=== PATIENT | male | born 1970 | race Caucasian/White ===

== ENCOUNTER 2018-06-29 08:01 | Day surgery (SDC) | payer OTHER ==
[2018-06-28 12:54] VITALS: BMI 26.2
[2018-06-29] MEDS ORDERED: BUPIVACAINE HCL/EPINEPHRINE/PF 30 ML VIAL IJ ONE (09:03)
[2018-06-29] MEDS ORDERED: EPINEPHrine 1:1,000 1 MG/1 ML - 30ML VIAL (INJECTION) ONE (09:04)
[2018-06-29] MEDS ORDERED: DEXAMETHASONE SOD PHOSPHATE/PF 10 MG/ML SDV ONE (10:19)
[2018-06-29] MEDS ORDERED: ROPIVACAINE HCL 0.5% 30ML VIAL ONE (10:20)
[2018-06-29] MEDS ORDERED: MIDAZOLAM HCL 2 MG/2 ML SINGLE DOSE VIAL ONE (10:33)
[2018-06-29] MEDS ORDERED: PROPOFOL 20 ML ONE ×4 (11:06→11:39)
[2018-06-29] MEDS ORDERED: SUCCINYLCHOLINE CHLORIDE 200 MG/10 ML VIAL ONE (11:07)
[2018-06-29] MEDS ORDERED: ceFAZolin SODIUM 1 GM VIAL ONE (11:17)
[2018-06-29] MEDS ORDERED: ONDANSETRON 4 MG/2 ML VIAL ONE (11:17)
[2018-06-29] MEDS ORDERED: DEXAMETHASONE SOD PHOSPHATE 4 MG/1 ML VIAL ONE (11:17)
--- NOTE | 2018-06-29 12:18 | SURG ---
Surgery Shearing Shed Hand Note Shearing Shed Hand: Irma Iraheta PA-C Date of Service: 06/29/18 Diagnosis: Right shoulder A/c joint arthritis Procedure: Right shoulder arthroscopy with distal clavicle excision I was present for the entirety of the operative procedure. For further detail, please refer to operative report. Visit type - Case Type Case Type: Scheduled - Emergency Emergency Visit: No - New patient This patient is new to me today: Yes Date on this admission: 06/29/18
--- NOTE | 2018-06-29 12:23 | OP ---
Operative Note - Note: Operative Date: 06/29/18 Pre-Operative Diagnosis: right a/c joint arthritis Operation: right shoulder arthroscopy with distal calvicle excision Post-Operative Diagnosis: Same as Pre-op Surgeon: Tristan Branham Crew Supervisor: Irma Iraheta Anesthesiologist/CRIMPER OPERATOR: Devora Cuevas Anesthesia: General, Local (block) Estimated Blood Loss (mls): 5 Fluid Volume Replaced (mls): 900 Operative Report Dictated: Yes
[2018-06-29] MEDS ORDERED: oxyCODONE HCL 10 MG SUSTAINED ACTING TABLET PO ONE (12:41)
[2018-06-29] MEDS ORDERED: oxyCODONE HCL 5 MG TABLET PO PRN (12:41)
--- NOTE | 2018-06-29 12:43 | DS ---
Physical Examination Vital Signs: Vital Signs Temperature 97.5 F L 06/29/18 08:17 Pulse Rate 69 06/29/18 08:17 Respiratory Rate 16 06/29/18 08:17 Blood Pressure 108/74 06/29/18 08:17 O2 Sat by Pulse Oximetry (%) 98 06/29/18 08:17 Discharge Summary Reason For Visit: AC JOINT ARTHROSIS RIGHT SHOULDER Condition: Good - Instructions Diet, Activity, Other Instructions: Post Operative Instructions: Shoulder Arthroscopy Dr Tristan Branham 1. Pain following a Shoulder Arthroscopy is variable and can be significant. Some patients will have more pain than others. You have been provided with a prescription for medication that contains a narcotic. You are not allowed to drive while on this medication. You should take Tylenol (Acetaminophen) when taking the pain medication ( it will NOT result in an overdose). Feel free to take medications such as Ibuprofen or Naprosyn in addition to the pain medicine if you do not have any problems with the NSAID class of medications. 2. Apply ice to the shoulder for 15 minutes every hour. You may continue this for as many days as necessary. 3. You may find sleeping on an incline (reclining chair) to be more comfortable for the first few days. 4. You may remove your sling when the arm is comfortable. 5. You may use the arm as tolerated. 6. You may remove the bandages in 48 hours. You may shower at that point. 7. Place band-aids on the incisions after your shower. 8. Please call the office to schedule a visit to have your sutures removed. 9. If for any reason you believe you may have an infection or are concerned, please feel free to call me. I can be reached through our office number 24 hours a day. 10. Please call our office with any questions; we will review the surgical findings during your post-operative visit. Disposition: HOME - Home Medications Comprehensive Discharge Medication List: Ambulatory Orders NK [No Known Home Medication] 06/28/18
[2018-06-29 12:48] VITALS: TEMP 97.4
[2018-06-29] MEDS ORDERED: ONDANSETRON 4 MG/2 ML VIAL IVPUSH PRN (13:22)
[2018-06-29] MEDS ORDERED: LACTATED RINGERS SOLUTION 1,000 ML IV SCH (13:30)
[2018-06-29 13:35] VITALS: BP 114/74; PULSE 76
--- NOTE | 2018-07-04 16:00 | PATH ---
Surgical Pathology Report Patient Name: VIOLET MONTAÑO [facility]. Rec. #: [id number] /Age/Gender: 1970 (Age: 47) / M Account: [id number] Location: [facility] AMBULATORY Taken: 06/29/2018 Received: 06/29/2018 Reported: 07/04/2018 Physicians: Tristan Branham M.D. Specimen(s) Received RIGHT SHOULDER SHAVINGS Clinical History AC joint arthrosis right shoulder Final Diagnosis SHOULDER, RIGHT, ARTHROSCOPIC SHAVINGS: FIBROSYNOVIAL TISSUE, FIBROCOLLAGENOUS TISSUE, SCANT BONE AND SKELETAL MUSCLE. Electronically Signed Irma Colin M.D. Gross Description Received in formalin labeled "right shoulder shavings," is a 2.5 x 1.6 x 0.3 cm aggregate of haas-yellow soft tissue fragments. The formalin is filtered and the specimen is entirely submitted in one cassette. /07/02/2018 saudi07/02/2018
== END 2018-06-29 13:35 | disposition home or self-care (01) ==
LOC: FASU 08:01
PROVIDERS: ATTEND Orthopaedic Surgery
PROC: 0PB94ZZ Excision of Right Clavicle, Percutaneous Endoscopic Approach (ICD-10-PCS; principal; 2018-06-29 11:32)
DX: M19.011 Primary osteoarthritis, right shoulder (principal)
CPT/HCPCS: 88304-TC

== ENCOUNTER 2018-07-13 07:31 | Day surgery (SDC) | payer OTHER ==
[2018-06-29 12:56] VITALS: BMI 26.2
[2018-07-13] MEDS ORDERED: MIDAZOLAM HCL 2 MG/2 ML SINGLE DOSE VIAL ONE (07:36)
[2018-07-13] MEDS ORDERED: DEXAMETHASONE SOD PHOSPHATE/PF 10 MG/ML SDV ONE (07:36)
[2018-07-13] MEDS ORDERED: ROPIVACAINE HCL 0.5% 30ML VIAL ONE (07:36)
[2018-07-13] MEDS ORDERED: SUCCINYLCHOLINE CHLORIDE 200 MG/10 ML VIAL ONE (07:37)
[2018-07-13] MEDS ORDERED: PROPOFOL 20 ML ONE ×5 (07:37→09:27)
[2018-07-13] MEDS ORDERED: ONDANSETRON 4 MG/2 ML VIAL ONE (07:38)
[2018-07-13] MEDS ORDERED: ceFAZolin SODIUM 1 GM VIAL ONE (07:38)
[2018-07-13] MEDS ORDERED: SODIUM CHLORIDE 0.9% P/F 10 ML VIAL IJ ONE (07:38)
[2018-07-13] MEDS ORDERED: BUPIVACAINE HCL/EPINEPHRINE/PF 30 ML VIAL IJ ONE (07:43)
[2018-07-13] MEDS ORDERED: ePHEDrine SULFATE 50 MG/1 ML AMPULE ONE (09:14)
[2018-07-13] MEDS ORDERED: oxyCODONE HCL 10 MG SUSTAINED ACTING TABLET PO ONE (10:04)
[2018-07-13] MEDS ORDERED: oxyCODONE HCL 5 MG TABLET PO PRN ×2 (10:04→10:38)
--- NOTE | 2018-07-13 10:07 | DS ---
Physical Examination Vital Signs: Vital Signs Temperature 98 F 07/13/18 07:41 Pulse Rate 70 07/13/18 07:41 Respiratory Rate 18 07/13/18 07:41 Blood Pressure 106/70 07/13/18 07:41 O2 Sat by Pulse Oximetry (%) 96 07/13/18 07:41 Discharge Summary Reason For Visit: AC JOINT ARTHROSIS LEFT SHOULDER Condition: Good - Instructions Diet, Activity, Other Instructions: Post Operative Instructions: Shoulder Arthroscopy Dr Tristan Branham 1. Pain following a Shoulder Arthroscopy is variable and can be significant. Some patients will have more pain than others. You have been provided with a prescription for medication that contains a narcotic. You are not allowed to drive while on this medication. You should take Tylenol (Acetaminophen) when taking the pain medication ( it will NOT result in an overdose). Feel free to take medications such as Ibuprofen or Naprosyn in addition to the pain medicine if you do not have any problems with the NSAID class of medications. 2. Apply ice to the shoulder for 15 minutes every hour. You may continue this for as many days as necessary. 3. You may find sleeping on an incline (reclining chair) to be more comfortable for the first few days. 4. You may remove your sling when the arm is comfortable. 5. You may use the arm as tolerated. 6. You may remove the bandages in 48 hours. You may shower at that point. 7. Place band-aids on the incisions after your shower.Do not put any creams or lotions on the incision until after the sutures are removed. 8. Please call the office to schedule a visit to have your sutures removed. 9. If for any reason you believe you may have an infection or are concerned, please feel free to call me. I can be reached through our office number 24 hours a day. 10. Please call our office with any questions; we will review the surgical findings during your post-operative visit. Disposition: HOME - Home Medications Comprehensive Discharge Medication List: Ambulatory Orders Oxycodone HCl 10 mg PO HS PRN 07/13/18
--- NOTE | 2018-07-13 10:07 | OP ---
Operative Note - Note: Operative Date: 07/13/18 Pre-Operative Diagnosis: Left shoulder ACJ OA Operation: LSA, Distal Clavicle resection Post-Operative Diagnosis: Same as Pre-op Surgeon: Tristan Branham Ream Cutter: Dean Tellez Anesthesiologist/CELLOPHANE TESTER: Hussein Albrecht Anesthesia: General Operative Report Dictated: Yes
[2018-07-13 10:32] VITALS: PULSE 78
[2018-07-13] MEDS ORDERED: ONDANSETRON 4 MG/2 ML VIAL IVPUSH PRN (10:38)
[2018-07-13] MEDS ORDERED: LACTATED RINGERS SOLUTION 1,000 ML IV SCH (10:45)
[2018-07-13] MEDS ORDERED: oxyCODONE HCL 10 MG SUSTAINED ACTING TABLET ONE (11:19)
[2018-07-13 12:46] VITALS: BP 111/65; TEMP 98.3
== END 2018-07-13 11:45 | disposition home or self-care (01) ==
LOC: FASU 07:31
PROVIDERS: ATTEND Orthopaedic Surgery
PROC: 0PBB4ZZ Excision of Left Clavicle, Percutaneous Endoscopic Approach (ICD-10-PCS; principal; 2018-07-13 09:01)
DX: M19.012 Primary osteoarthritis, left shoulder (principal)
CPT/HCPCS: 94760